=== PATIENT | female | born 1995 | race Caucasian/White ===

== ENCOUNTER 2017-08-08 13:51 | Emergency (ER) | payer BC ==
[~2017-08-08] VITALS: Ht 170.2 cm; Wt 72.0 kg
[2017-08-08 14:19] VITALS: BP 126/73; PULSE 69; RESP 16; TEMP 97.8; O2SAT 100
[2017-08-08] MEDS ORDERED: PROPARACAINE HCL 0.5% OPHT SOLN 15 ML BTL LEFT EYE ONE (14:45)
--- NOTE | 2017-08-08 15:37 | PD ---
HPI Chief Complaint: Eye Problems/Injury Time Seen by Provider: 14:38 Travel History International Travel<30 days: No Contact w/Intl Traveler<30days: No Traveled to known affect area: No History of Present Illness HPI 21-year-old female presents to the ED for evaluation of 5/10 left eye pain. Onset around 6 AM when she was trying to dislodge something, lost her cigar sorter and "stabbed my fingernail between my upper lid and eyeball." She reports seeing a flash of light at the time. On presentation she complains of photophobia, stinging sensation, mildly blurred vision. She denies headache, nausea, foreign body sensation, pain with ocular motions. No treatment attempted before arrival. [facility] Social History Tobacco Use: No Allergies-Medications (Allergen,Severity, Reaction): Uncoded Allergies: AMYTRIPTILENE (Allergy, Severe, RESPIRATORY, 08/08/17) Reported Meds & Prescriptions Reported Meds & Active Scripts Active Erythromycin Opth Oint 5 Mg/Gm Oint 1 Applic LEFT EYE QID 7 Days [facility] Gabapentin 100 Mg Cap 100 Mg PO BID Topiramate ER (Topiramate) 25 Mg Cap 25 Mg PO DAILY Review of Systems Except as stated in HPI: all other systems reviewed are Neg Physical Exam Narrative GENERAL: Well-nourished, well-developed white female no acute distress. SKIN: Focused skin assessment warm/dry. HEAD: Normocephalic. EYES: No scleral icterus. Pupils 4-5 mm, equal round and reactive to light and accommodation bilaterally. FOCUSED OS EXAM: Mildly injected. IOP 21. Intraocular motion intact. Fluorescein exam reveals 5 cm corneal abrasion at the 12 o'clock position over the iris. No visible damage the palpebral surfaces. No foreign body noted. NECK: Trachea midline. No JVD or lymphadenopathy. CARDIOVASCULAR: Regular rate and rhythm without murmurs, gallops, or rubs. RESPIRATORY: No accessory muscle use. GASTROINTESTINAL: Abdomen soft, non-tender, nondistended. MUSCULOSKELETAL: No cyanosis, or edema. Walks with a normal gait. BACK: No obvious deformity. Data Data Last Documented VS Vital Signs Date Time Temp Pulse Resp B/P (MAP) Pulse Ox O2 Delivery O2 Flow Rate FiO2 08/08/17 14:19 97.8 69 16 126/73 (90) 100 Orders Orders Proparacaine 0.5% Opth Soln (Alcaine 0.5 (08/08/17 14:45) Ed Discharge Order (08/08/17 15:38) [facility] Medical Decision Making Medical Screen Exam Complete: Yes Emergency Medical Condition: Yes Differential Diagnosis Corneal abrasion versus iritis versus ruptured globe versus other Narrative Course 21-year-old female presents to the ED for evaluation of 5/10 left eye pain. Onset around 6 AM when she was trying to dislodge something, lost her cigar sorter and "stabbed my fingernail between my upper lid and eyeball." She reports seeing a flash of light at the time. On presentation she complains of photophobia, stinging sensation, mildly blurred vision. Vitals reviewed. Left eye was evaluated under anesthesia by single drop of proparacaine. EYES: No scleral icterus. Pupils 4-5 mm, equal round and reactive to light and accommodation bilaterally. No visible damage to the palpebral surfaces. No foreign body noted. FOCUSED OS EXAM: Mildly injected. IOP 21. Intraocular motion intact. Fluorescein exam reveals 5 cm corneal abrasion at the 12 o'clock position over the iris. Patient's prescribed erythromycin ointment 4 times daily, instructed to follow-up with Dr. Jeter this week, return for worsening symptoms. She indicated understanding of instructions and is agreeable to care plan. Patient is stable and discharged home. Diagnosis Primary Impression: Corneal abrasion, left Qualified Codes: S05.02XA - Injury of conjunctiva and corneal abrasion without foreign body, left eye, initial encounter Referrals: Michelle Jeter MDdirector ship Additional Instructions: Rest, hydrate. Apply antibiotic ointment 4 times daily as discussed. Do not allow the tip of the bottle to touch the eye. Artificial tears kept in the fridge and instilled in the eye a few times a day may help to improve your symptoms. OTC pain medications as prescribed on the label, as needed for pain. Follow-up with Dr. Jeter as discussed. Return to the ED for worsening symptoms or any urgent or emergent medical condition. Med/Other Pt SpecificInfo: Prescription(s) given Scripts Erythromycin Opth Oint (Erythromycin Opth Oint) 5 Mg/Gm Oint 1 APPLIC LEFT EYE QID for Infection for 7 Days, #1 TUBE 0 Refills Prov: Panfilo Arroyo MD 08/08/17 Disposition: 01 DISCHARGE HOME Condition: Stable Lyndsey Cedeno August 08, 2017 15:37
[2017-08-08] MEDS ORDERED: ERYTOIN10 LEFT EYE (15:38)
[2017-08-08] MEDS ORDERED: TOPI1CAP16 PO (15:50)
[2017-08-08] MEDS ORDERED: GABA100C4 PO (15:50)
[2017-08-08] MEDS ORDERED: ZYRTEC (15:50)
== END 2017-08-08 16:00 | disposition home or self-care (01) ==
LOC: NEPK 13:51
DX: S05.02XA Injury of conjunctiva and corneal abrasion without foreign body, left eye, initial encounter (principal); X58.XXXA Exposure to other specified factors, initial encounter
CPT/HCPCS: 99283